=== PATIENT | female | born 1940 | race Caucasian/White ===

== ENCOUNTER → 2016-07-07 | Outpatient (CLI) | payer MEDICARE, OTHER ==
[~2016-07-07] MED LIST: ALLO300T74 PO; ASCO100T10 PO; ASPI81TA2 PO; CALC-191 PO; CINN500C4 PO; CIPR-280 PO; DIGO250T72 PO; DILT120C21 PO; DIPH25CA6 PO; GABA-215 PO; GEMF600T61 PO; GLUC1CAP64 PO; MELO-31 PO; TRAM50TA4 PO; URIN1STR90; [UNRECOGNIZED DRUG - CODE] PO
--- NOTE | 2016-07-07 13:04 | DI ---
INDICATION: ITS.REASON: Z01.818 PRE-OP EXAM; PROCEDURE: CHEST 2-VIEWS UPRIGHT (PA \T\ LAT) Encounter: Initial COMPARISON: November 23, 2010 FINDINGS: The lungs are clear without evidence of focal abnormal airspace opacity. There is no pleural effusion or pneumothorax. The heart size, mediastinal contours and pulmonary vascularity are within normal limits. 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 IMPRESSION: No acute cardiopulmonary disease. .
--- NOTE | 2016-07-07 13:05 | DI ---
Indication: ITS.REASON: R10.9 ABD PAIN PROCEDURE: KUB: Encounter: Initial Comparison: None Findings: The visualized lung bases are clear. The bowel gas pattern is nonobstructive and nonspecific. Gas is seen in nondilated small and large bowel to the level of the rectum. Moderate stool is seen throughout the colon. The bony structures show joint space narrowing in both hips. Arterial vascular calcifications. Mild scoliosis in the spine. Impression: Nonobstructive nonspecific bowel gas pattern. .
== END ==
LOC: IMA 12:22
PROVIDERS: ATTEND Family Medicine
DX: Z01.818 Encounter for other preprocedural examination (principal)